=== PATIENT | female | born 1975 | race Hispanic/Latino ===

== ENCOUNTER 2024-02-16 22:32 | Emergency (ER) | payer OTHER, MEDICARE ==
[~2024-02-16] VITALS: Ht 162.6 cm; Wt 180.3 kg
[2024-02-16 22:55] VITALS: PULSE 52; RESP 18; TEMP 98.2
[2024-02-16] MEDS ORDERED: CEPHALEXIN 500 MG CAP PO SCH (23:15)
[2024-02-16] MEDS ORDERED: SILVADENE20 GM TOP (23:19)
[2024-02-16] MEDS ORDERED: CEPHALEXIN500 MG PO (23:20)
[2024-02-16] MEDS: BACITRACIN ZINC 0.9GM TP ONE (23:29)
[2024-02-16] MEDS: TETANUS/DIPHTHERIA TOX ADULT 0.5 ML SYR IM ONE (23:30)
[2024-02-16] MEDS ORDERED: CEPHALEXIN MONOHYDRATE 250 MG CAP ONE (23:40)
[2024-02-16 23:48] VITALS: BP 170/84; PULSE 49; RESP 18; TEMP 98.4; O2SAT 99
== END 2024-02-16 23:48 | disposition home or self-care (01) ==
LOC: FSED 22:54
DX: T21.21XA Burn of second degree of chest wall, initial encounter (principal); X10.2XXA Contact with fats and cooking oils, initial encounter; Y92.89 Other specified places as the place of occurrence of the external cause; I10 Essential (primary) hypertension; F41.9 Anxiety disorder, unspecified; F32.A Depression, unspecified; Z98.84 Bariatric surgery status
CPT/HCPCS: 90471; 90714; 96372; 99283

== ENCOUNTER 2024-06-20 23:42 | Emergency (ER) | payer MEDICARE ==
[~2024-06-20] VITALS: Ht 162.6 cm; Wt 179.2 kg
[~2024-06-20 23:42] MED LIST: CEPHALEXIN500 MG PO; SILVADENE20 GM TOP
[2024-06-21 00:15] VITALS: PULSE 76; RESP 18; TEMP 97.8
[2024-06-21] MEDS: TRAMADOL HCL 50 MG TAB PO ONE (00:49)
[2024-06-21] MEDS ORDERED: ULTRAM 50MG50 MG PO (01:02)
[2024-06-21 01:10] VITALS: BP 183/81; PULSE 76; RESP 18; TEMP 97.8; O2SAT 97
== END 2024-06-21 01:10 | disposition home or self-care (01) ==
LOC: FSED 06-21 00:08
DX: M25.561 Pain in right knee (principal); M17.11 Unilateral primary osteoarthritis, right knee; I10 Essential (primary) hypertension; F41.9 Anxiety disorder, unspecified; F32.A Depression, unspecified; E66.9 Obesity, unspecified; Z98.84 Bariatric surgery status
CPT/HCPCS: 99283